=== PATIENT | female | born 1965 | race Caucasian/White ===

== ENCOUNTER 2022-05-28 14:16 | Outpatient (CLI) | payer MEDICAID, SELFPAY ==
--- NOTE | 2022-05-28 14:40 | CRLHL7_ITS ---
For Patients: As a result of the Century Cures Act, medical imaging exams and procedure reports are released immediately into your electronic medical record. You may view this report before your referring provider. If you have questions, please contact your health care provider. BILATERAL SCREENING MAMMOGRAM WITH COMPUTER-AIDED DETECTION TECHNIQUE: CC and MLO views were obtained. These mammographic images have been obtained using full-field digital technique. These mammographic images were interpreted with the benefit of computer-aided detection. COMPARISON FILM: 05/07/21, 02/14/20, 11/30/18. FINDINGS: There are scattered areas of fibroglandular density IMPRESSION: There is no radiographic evidence for malignancy. ASSESSMENT: BI-RADS Category 1: Negative RECOMMENDATION: Routine screening mammogram in 1 year. A lay language report of this examination will be provided to the patient. Davie Moralez M.D. Diagnostic Radiologist [email or web address] RUTH/Dictated by: Davie Moralez MD @ 05/29/2022 9:32:00 AM (Electronically Signed)
== END 2022-05-28 14:17 | disposition home or self-care (01) ==
LOC: MAMMO 14:21
PROVIDERS: PCP Family Medicine; Visit Provider Family Medicine
DX: Z12.31 Encounter for screening mammogram for malignant neoplasm of breast (principal); R92.2 Inconclusive mammogram
CPT/HCPCS: 77067

== ENCOUNTER 2022-12-23 01:10 | Emergency (ER) | payer MEDICAID, SELFPAY ==
[2022-12-23 01:24] VITALS: BP 151/85; PULSE 60; RESP 18; TEMP 36.2; O2SAT 97; BMI 30.4
--- NOTE | 2022-12-23 01:41 | ED.HA ---
HPI - Headache General Time Seen by Provider: 01:41 Date Seen: 12/23/22 Chief Complaint: Headache/Migraine Stated Complaint: left ear pain, vertigo and headache Time Seen by Provider: 12/23/22 01:40 Source: patient, family, RN notes reviewed and old records reviewed Mode of arrival: ambulatory Limitations: no limitations History of Present Illness HPI Narrative: 57-year-old female who presents today with vertigo in your pain. This is been going on for about 10 days and prior and so he was seen by primary care, started on prednisone, meclizine, and Zofran. Raheem has left-sided head pain and ear pain and so decided to come the emergency department. No drainage from the ear, no decreased hearing. Some pain in the back teeth. Has not taken anything for this other than some Sudafed earlier today. Related Data Home Medications Medication Instructions Recorded Confirmed meclizine 25 mg tablet 12.5 - 25 mg PO TID PRN 08/07/22 12/17/22 ondansetron 4 mg disintegrating See Rx Instructions PO Q6H 08/07/22 12/17/22 tablet atenolol 50 mg tablet 50 mg PO DAILY 12/15/22 12/23/22 citalopram 40 mg tablet 40 mg PO DAILY 12/15/22 12/23/22 Previous Rx's Medication Instructions Recorded ketoconazole 2 % shampoo 1 applic topical 3XW #120 mL 12/15/21 diazepam 5 mg tablet 5 mg PO TID PRN vertigo #7 tabs 12/15/22 lorazepam 1 mg tablet See Rx Instructions PO ONCE #2 tabs 12/17/22 prednisone 20 mg tablet See Rx Instructions PO .ud #15 tabs 12/17/22 Allergies Allergy/AdvReac Type Severity Reaction Status Date / Time No Known Drug Allergies Allergy Verified 12/17/22 11:37 Review of Systems Status of ROS: Reports: 10 or more systems reviewed and unremarkable except as noted in History and below [facility] Surgical History Status post tonsillectomy and adenoidectomy ?Z90.89 - Acquired absence of other organs (ICD-10) Status post foot surgery ?Z98.890 - Other specified postprocedural states (ICD-10) Status post breast lumpectomy ?Z98.890 - Other specified postprocedural states (ICD-10) Social History Smoking Status: Former smoker Do you use any of these nicotine containing products: None Non-prescribed substance use: denies use Exam Narrative: Exam Narrative: General: Well-developed and well-nourished, no acute distress Head: Atraumatic and normocephalic Eyes: Pupils are equal reactive, extraocular motions intact, conjunctiva clear ENT: External nose and ears are normal, posterior pharynx without erythema or exudate. Slight tenderness posterior to the ear, no induration or redness of the mastoid area to suggest mastoiditis Neck: No midline cervical tenderness, full spontaneous range of motion the neck, trachea midline, no adenopathy Heart: Regular rate and rhythm no murmurs or thrills Lungs: Clear to auscultation bilaterally without wheezes or crackles Abdomen: Soft, nontender, nondistended with active bowel sounds Musculoskeletal: No tenderness, deformity, or edema Neurologic: Awake, alert, and oriented x3, no gross focal neurologic deficits, cranial nerves intact as tested Psych: Mood and affect are appropriate Skin: No rashes Const: Vital Signs, click to edit/add: Vital Signs - 24 hr 12/23/22 01:24 12/23/22 02:59 Temperature 97.2 F L Pulse Rate [Pulse Oximeter] 60 55 L Respiratory Rate 18 18 Blood Pressure [Ri ght Upper Arm] 151/85 H 146/74 H Pulse Oximetry 97 97 Oxygen Delivery Me thod Room Air Room Air Course Course Hospital Course: Patient seen and examined, prior records reviewed. Patient presents today with ear pain, left-sided headache which have started this evening, as well as vertigo which she has been causing problems for last 10 days or so. Patient walks with a steady gait, no focal neurologic deficits. No erythema or induration of the mastoid. Reevaluation(s) Time of Reevaluation #1: 03:33 Reevaluation #1: CT scan of the brain independently interpreted by me does not demonstrate any acute abnormality. CT scan of the internal auditory canal interpreted by radiologist demonstrates bilateral dehiscence of the semicircular canal. This certainly could cause patient's symptoms of balance problems which have been going on for several years as well as vertigo which is new, although we did discuss that presence of the dehiscence does not necessarily correlate with symptoms. Patient should follow-up with Dr. Almaraz or Dr. Prater ENT for further evaluation treatment. Headache and ear pain are improved and patient is stable for discharge. Vital Signs Vital signs: Initial Vital Signs Temperature 97.2 F L 12/23/22 01:24 Temperature Source Temporal Artery Scan 12/23/22 01:24 Pulse Rate 60 12/23/22 01:24 Respiratory Rate 18 12/23/22 01:24 Blood Pressure 151/85 H 12/23/22 01:24 Blood Pressure Mean 107 H 12/23/22 01:24 Blood Pressure Position Sitting 12/23/22 01:24 Pulse Oximetry 97 12/23/22 01:24 Oxygen Delivery Method Room Air 12/23/22 01:24 Vital Signs Temperature 97.2 F L 12/23/22 01:24 Pulse Rate 60 12/23/22 01:24 Respiratory Rate 18 12/23/22 01:24 Blood Pressure 151/85 H 12/23/22 01:24 Pulse Oximetry 97 12/23/22 01:24 Oxygen Delivery Method Room Air 12/23/22 01:24 Temperature 97.2 F L 12/23/22 01:24 Pulse Rate 55 L 12/23/22 02:59 Respiratory Rate 18 12/23/22 02:59 Blood Pressure 146/74 H 12/23/22 02:59 Pulse Oximetry 97 12/23/22 02:59 Oxygen Delivery Method Room Air 12/23/22 02:59 Discharge Plan Discharge Clinical Impression: Vertigo, Otalgia of left ear, 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 Take Tylenol and ibuprofen as needed for pain Follow-up with ENT (Dr. Prater or Dr. Almaraz You may have the superior semicircular canal dehiscence syndrome What Is Canal Dehiscence Syndrome? Canal dehiscence syndrome (also called superior semicircular canal dehiscence syndrome, or SSCD) is a disorder that affects your balance and hearing. Dehiscence is another word for hole or a tear or opening that forms. Generally, it is due to the way the inner ear forms in utero. If you have SSCD, you have a hole or a very thin place in the bone in your?earhttps://www.[employer].com/mpdk-qyb-ale/ear-infection/xbhmxwr-xo-slb-ear?that helps your body balance itself. It also can cause problems with the way sound comes into your?earhttps://www.[employer].com/ewxy-lkx-jmc/ear-infection/video/dfk-lchmwmb-mqaacentu. SSCD is a rare condition. Only 1%-2% of the population has been diagnosed with it. Not everyone with the syndrome has symptoms, so the number of people who have it could be slightly higher. It affects men and women equally. People usually discover they have it in their 40s. Canal Dehiscence Syndrome Symptoms When you have SSCD, you might have one or more of the following: Echoes of sounds in your ear, like when you eat or talk (called autophony) Fullness in your ears Hearing losshttps://www.[employer].com/e-fv-w-guides/avggcnv-fosa-mcihlh-symptoms-treatment?(learn more about the different types of hearing loss, including?low-frequency hearing losshttps://www.[employer].com/voeuymf-vs-bngi/hearing-loss/vjmu-qi-isor-oluev-keh-nejylhstt-hearing-loss.) Internal noises, like your heartbeat, that are louder than normal Quick side to side or up and down movements of your?eyeshttps://www.[employer].com/eye-health/zthehzg-tv-hap-eyes?(called?nystagmushttps://www.[employer].com/eye-health/nystagmus) Ringing in your ears Sound of your pulse in your ears A feeling that things are moving when they aren?t (called oscillopsia) Unsteadiness Vertigohttps://www.[employer].com/brain/zzyzzfh-gqaynitu-iuveaj-treatment?or?dizzinesshttps://www.[employer].com/first-aid/zwwrglqujdxbu-whzdxkdsi-vfodow These symptoms can be triggered when you: Coughhttps://www.[employer].com/first-aid/coughs?or?sneezehttps://www.[employer].com/allergies/hp-graw-dwvfhkrg Feel pressure changes Hear loud sounds Lift heavy objects Strain Activity Level: Activity as Tolerated Discharge Diet: Regular Prescriptions: No Action atenolol 50 mg tablet 50 mg PO DAILY citalopram 40 mg tablet 40 mg PO DAILY diazepam 5 mg tablet 5 mg PO TID PRN (Reason: vertigo) Qty: 7 0RF prednisone 20 mg tablet See Rx Instructions PO .ud Qty: 15 0RF Rx Instructions: 20 mg bid for 5 days, then QD for 5 days orally UD; lorazepam 1 mg tablet See Rx Instructions PO ONCE Qty: 2 0RF Rx Instructions: 1-2 mg before procedure orally once; ketoconazole 2 % shampoo 1 applic topical 3XW Qty: 120 6RF meclizine 25 mg tablet 12.5 - 25 mg PO TID PRN ondansetron 4 mg tablet,disintegrating See Rx Instructions PO Q6H Rx Instructions: unknown dose orally every 6 hours; Follow Up/Referrals: Ranulfo Almaraz MD [Staff Physician] - Davonte Prater MD [Staff Physician] - Ranulfo Harper MD [Primary Care Provider] - Stand Alone Forms: [employer] Info Instructions
--- NOTE | 2022-12-23 02:05 | CRLHL7_ITS ---
For Patients: As a result of the Century Cures Act, medical imaging exams and procedure reports are released immediately into your electronic medical record. You may view this report before your referring provider. If you have questions, please contact your health care provider. INDICATION: Left ear pain. TECHNIQUE: CT of the temporal bones performed without IV contrast. COMPARISON: None relevant available at this institution. FINDINGS: RIGHT: The external auditory canal is patent. The tympanic membrane is not thickened. The mesotympanum is well aerated. The scutum is sharp. Ossicles are intact without evidence of erosion. The epitympanum and mastoid air cells appear clear. There is apparent dehiscence the superior semicircular canal. The inner ear structures including the cochlea, lateral and posterior semicircular canals, vestibule and vestibular aqueduct appear unremarkable. Osseous IAC is intact. The path of the facial nerve canal is preserved. LEFT: The external auditory canal is patent. The tympanic membrane is not thickened. The mesotympanum is well aerated. The scutum is sharp. Ossicles are intact without evidence of erosion. The epitympanum and mastoid air cells appear clear. There is apparent dehiscence the superior semicircular canal. The inner ear structures including the cochlea, lateral and posterior semicircular canals, vestibule and vestibular aqueduct appear unremarkable. Osseous IAC is intact. Osseous IAC is intact. The path of the facial nerve canal is preserved. OTHER: Please refer to separate CT head. IMPRESSION: Apparent dehiscence of the bilateral superior semicircular canals. Otherwise unremarkable CT of the temporal bones. Please note that all CT scans at this facility use dose modulation, iterative reconstruction, and/or weight-based dosing when appropriate to reduce radiation dose to as low as reasonably achievable. Dictated by Leo Laws MD @ 12/23/2022 3:18:14 AM (Electronically Signed)
--- NOTE | 2022-12-23 02:05 | CRLHL7_ITS ---
For Patients: As a result of the Century Cures Act, medical imaging exams and procedure reports are released immediately into your electronic medical record. You may view this report before your referring provider. If you have questions, please contact your health care provider. INDICATION: Left-sided headache. TECHNIQUE: CT head without contrast. COMPARISON: None. FINDINGS: CSF spaces: Within normal limits for age. 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 The hawthorne-white differentiation is normal. No evidence of intracranial hemorrhage, extra-axial fluid collection, or midline shift. Skull base and calvarium: The visualized paranasal sinuses and mastoid air cells demonstrate no acute or significant findings. The visualized orbits are grossly unremarkable. No skull fractures. IMPRESSION: 1. No acute intracranial abnormality. 2. 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 Please note that all CT scans at this facility use dose modulation, iterative reconstruction, and/or weight-based dosing when appropriate to reduce radiation dose to as low as reasonably achievable. Dictated by Leo Laws MD @ 12/23/2022 3:05:54 AM (Electronically Signed)
[2022-12-23] MEDS: ONDANSETRON 2 MG/ML inj 4 MG IVP (02:15)
[2022-12-23] MEDS: 0.9 % SODIUM CHLORIDE 1000 ml 1,000 ML IV (02:15)
[2022-12-23] MEDS: KETOROLAC 15 MG/ML inj IVP (02:15)
[2022-12-23 02:59] VITALS: BP 146/74; PULSE 55; RESP 18; O2SAT 97
--- NOTE | 2022-12-23 03:47 | PC.NURSE ---
patient DC accompanied by , stated understanding to DC instructions with no further question
== END 2022-12-23 03:44 | disposition home or self-care (01) ==
PROVIDERS: Emergency Provider Family Medicine; PCP Family Medicine
DX: H92.02 Otalgia, left ear (principal); R42 Dizziness and giddiness; H83.8X3 Other specified diseases of inner ear, bilateral
CPT/HCPCS: 70450; 70480; 99283; 99284; J1885; J2405; J7030

== ENCOUNTER 2022-12-26 13:28 | Outpatient (CLI) | payer MEDICAID, SELFPAY ==
--- NOTE | 2022-12-26 13:45 | CRLHL7_ITS ---
For Patients: As a result of the Century Cures Act, medical imaging exams and procedure reports are released immediately into your electronic medical record. You may view this report before your referring provider. If you have questions, please contact your health care provider. Indication: Abnormal gait. Technique: Multiplanar, multisequence MRI of the brain was performed without intravenous contrast. Comparison: CT head 12/23/2022 Findings: The corpus callosum, pituitary gland and clivus appear intact. Craniocervical junction is preserved. There is a 1.2 cm pineal cyst identified. There is no restricted diffusion. No intracranial hemorrhage. The ventricles are proportionate to the cerebral sulci. The 4th ventricle appears midline. The basal cisterns appear patent. No abnormal extra-axial fluid collection identified. Few scattered nonspecific T2 FLAIR hyperintense white matter foci. There is no midline shift identified. Major intracranial vascular flow voids appear grossly intact. Both globes are preserved. Mild paranasal sinus mucosal disease. Impression: 1. No acute intracranial process. 2. Few scattered nonspecific T2 FLAIR hyperintense white matter foci. Differential considerations include sequela of migraine headaches or chronic ischemic microvascular disease. 3. 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 Consider follow-up MRI in 1 year due to size. Dictated by Amrit Cm MD @ 12/26/2022 4:18:38 PM (Electronically Signed)
== END 2022-12-26 13:29 | disposition home or self-care (01) ==
LOC: MRI 13:28
PROVIDERS: PCP Family Medicine; Visit Provider Family Medicine
DX: R26.89 Other abnormalities of gait and mobility (principal)
CPT/HCPCS: 70551

== ENCOUNTER 2022-12-29 12:58 | Outpatient (RCR) | payer MEDICAID, SELFPAY | END 2023-04-28 23:59 | disposition home or self-care (01) | PROVIDERS: PCP Family Medicine; Visit Provider Family Medicine | DX: R42 Dizziness and giddiness (principal); M72.2 Plantar fascial fibromatosis; M25.571 Pain in right ankle and joints of right foot; Z51.89 Encounter for other specified aftercare | CPT/HCPCS: 95992; 97162 ==

== ENCOUNTER 2023-01-09 15:38 | Outpatient (CLI) | payer MEDICAID, SELFPAY | END 2023-01-09 15:39 | disposition home or self-care (01) | LOC: NFLDREF 01-11 06:49 | PROVIDERS: PCP Family Medicine; Referring Provider Family Medicine; Visit Provider Otolaryngology | DX: E04.9 Nontoxic goiter, unspecified (principal) | CPT/HCPCS: 84443 ==

== ENCOUNTER 2023-07-21 16:00 | Outpatient (RCR) | payer MEDICAID, SELFPAY | END 2023-11-18 23:59 | disposition home or self-care (01) | PROVIDERS: PCP Family Medicine; Visit Provider Podiatrist | DX: M72.2 Plantar fascial fibromatosis (principal); Z51.89 Encounter for other specified aftercare | CPT/HCPCS: 97035; 97110; 97140; 97161 ==

== ENCOUNTER 2024-02-05 09:16 | Outpatient (CLI) | payer MEDICAID, SELFPAY | END 2024-02-05 09:17 | disposition home or self-care (01) | LOC: LKVREF 09:18 | PROVIDERS: PCP Family Medicine; Visit Provider Family Medicine | DX: R00.2 Palpitations (principal) | CPT/HCPCS: 80048 ==

== ENCOUNTER 2024-02-19 10:01 | Outpatient (CLI) | payer MEDICAID, SELFPAY | END 2024-02-19 10:02 | disposition home or self-care (01) | PROVIDERS: PCP Family Medicine; Visit Provider Obstetrics & Gynecology | DX: Z79.899 Other long term (current) drug therapy (principal) | CPT/HCPCS: 84450; 84460 ==

== ENCOUNTER 2024-03-11 09:41 | Outpatient (CLI) | payer MEDICAID, SELFPAY ==
[2024-03-13 03:29] LABS: HPV Source Cervical; HPV, High Risk by TMA Not Detected
== END 2024-03-11 09:42 | disposition home or self-care (01) ==
PROVIDERS: PCP Family Medicine; Visit Provider Obstetrics & Gynecology
DX: Z01.419 Encounter for gynecological examination (general) (routine) without abnormal findings (principal); Z12.4 Encounter for screening for malignant neoplasm of cervix; Z13.6 Encounter for screening for cardiovascular disorders; Z13.1 Encounter for screening for diabetes mellitus
CPT/HCPCS: 80061; 87624; 87625; 88141; 88142

== ENCOUNTER 2024-04-18 12:09 | Outpatient (CLI) | payer MEDICAID, SELFPAY ==
--- NOTE | 2024-04-18 13:38 | W.ANESCHARGE ---
Anesthesia Charges Start Date/Time Anesthesia Start Date: 04/18/24 Anesthesia Start Time: 13:00 Stop Date/Time Anesthesia Stop Date: 04/18/24 Anesthesia Stop Time: 13:40
--- NOTE | 2024-04-18 13:42 | W.ANESCHARGE ---
Anesthesia Charges Start Date/Time Anesthesia Start Date: 04/18/24 Anesthesia Start Time: 13:00 Stop Date/Time Anesthesia Stop Date: 04/18/24 Anesthesia Stop Time: 13:40
== END 2024-04-18 12:10 | disposition home or self-care (01) ==
LOC: OP CLINIC 12:10
PROVIDERS: PCP Family Medicine; Visit Provider Surgery
DX: Z86.0100 Personal history of colon polyps, unspecified (principal); K62.89 Other specified diseases of anus and rectum
CPT/HCPCS: 00811; 45380; 88305; J2704

== ENCOUNTER 2024-04-19 15:15 | Outpatient (CLI) | payer MEDICAID, SELFPAY ==
--- NOTE | 2024-04-19 15:20 | CRLHL7_ITS ---
For Patients: As a result of the Century Cures Act, medical imaging exams and procedure reports are released immediately into your electronic medical record. You may view this report before your referring provider. If you have questions, please contact your health care provider. BILATERAL SCREENING MAMMOGRAM WITH COMPUTER-AIDED DETECTION AND TOMOSYNTHESIS TECHNIQUE: CC and MLO views were obtained. These mammographic images have been obtained using full-field digital technique. These mammographic images were interpreted with the benefit of computer-aided detection. Breast Tomosynthesis was used in this interpretation. COMPARISON FILM: 05/28/22, 05/07/21, 02/14/20. FINDINGS: There are scattered areas of fibroglandular density. IMPRESSION: There is no radiographic evidence for malignancy. ASSESSMENT: BI-RADS Category 2: Benign RECOMMENDATION: Routine screening mammogram in 1 year. A lay language report of this examination will be provided to the patient. Davie Moralez M.D. Diagnostic Radiologist [email or web address] SP/Dictated by: Davie Moralez MD @ 04/20/2024 9:07:00 AM (Electronically Signed)
== END 2024-04-19 15:16 | disposition home or self-care (01) ==
LOC: MAMMO 15:16
PROVIDERS: PCP Family Medicine; Visit Provider Obstetrics & Gynecology
DX: Z12.31 Encounter for screening mammogram for malignant neoplasm of breast (principal)
CPT/HCPCS: 77063; 77067

== ENCOUNTER 2024-09-28 09:40 | Outpatient (CLI) | payer OTHER, SELFPAY | END 2024-09-28 09:41 | disposition home or self-care (01) | LOC: NFLDREF 10-02 23:55 | PROVIDERS: PCP Family Medicine; Referring Provider Family Medicine; Visit Provider Obstetrics & Gynecology | DX: N95.1 Menopausal and female climacteric states (principal); Z79.899 Other long term (current) drug therapy | CPT/HCPCS: 84450; 84460 ==

== ENCOUNTER 2024-12-28 07:45 | Outpatient (CLI) | payer OTHER, SELFPAY | END 2024-12-28 07:46 | disposition home or self-care (01) | LOC: NFLDREF 12-29 16:14 | PROVIDERS: PCP Family Medicine; Referring Provider Family Medicine; Visit Provider Obstetrics & Gynecology | DX: Z79.899 Other long term (current) drug therapy (principal) | CPT/HCPCS: 84450; 84460 ==

== ENCOUNTER 2025-04-10 16:20 | Outpatient (CLI) | payer OTHER, SELFPAY | END 2025-04-10 16:21 | disposition home or self-care (01) | LOC: NFLDREF 04-15 16:08 | PROVIDERS: PCP Family Medicine; Referring Provider Family Medicine; Visit Provider Obstetrics & Gynecology | DX: N95.1 Menopausal and female climacteric states (principal) | CPT/HCPCS: 80076 ==